=== PATIENT | female | born 1980 | race Caucasian/White ===

== ENCOUNTER 2018-09-10 22:09 | Outpatient (REF) | payer OTHER, SELFPAY ==
[2018-09-10 23:05] LABS: TSH (W/Ref FT4) 1.63 uIU/mL (0.358-3.74); Vitamin B12 765 pg/mL (193-986)
[2018-09-11 04:59] LABS: Vitamin D 25 Total 61.3 ng/ml (30-100)
== END 2018-09-10 22:29 ==
LOC: NCHCN 22:09
PROVIDERS: PCP Family Medicine; Visit Provider Nurse Practitioner Family
DX: E03.9 Hypothyroidism, unspecified (principal); F32.9 Major depressive disorder, single episode, unspecified; E55.9 Vitamin D deficiency, unspecified; E53.8 Deficiency of other specified B group vitamins
CPT/HCPCS: 82306; 82607; 84443

== ENCOUNTER 2019-11-26 13:41 | Outpatient (REF) | payer OTHER, SELFPAY ==
[2019-11-26 22:02] LABS: ALT 26 U/L (14-59); AST 18 U/L (15-37); Albumin 4.3 g/dL (3.4-5.0); Alkaline Phosphatase 61 U/L (46-116); Anion Gap 5.4 mmol/L (3-11); BUN 12 mg/dL (7-18); Bilirubin, Total 0.2 mg/dL (0.2-1.0); CO2 29.6 mmol/L (21.0-32.0); CREATININE 0.75 mg/dL (0.55-1.02); Calcium 9.1 mg/dL (8.5-10.1); Chloride 104 mmol/L (98-107); Glucose 77 mg/dL (74-106); Potassium 4.2 mmol/L (3.5-5.1); Sodium 139 mmol/L (136-145); TSH 1.45 uIU/mL (0.36-3.74); Total Protein 7.3 g/dL (6.4-8.2)
[2019-12-02 15:05] LABS: IgA 289 mg/dL (85-499); Interpretation (See Note); Tissue Transglutaminase IgA <1.2 U/mL (<4.0)
== END 2019-11-26 14:01 ==
LOC: NCHCN 13:41
PROVIDERS: PCP Family Medicine; Visit Provider Family Medicine
DX: E03.9 Hypothyroidism, unspecified (principal); E66.3 Overweight
CPT/HCPCS: 80053; 82784; 83516; 84443

== ENCOUNTER 2021-01-03 17:52 | Outpatient (REF) | payer OTHER, SELFPAY ==
[2021-01-03 22:17] LABS: HCT 37.4 % (36.0-46.0); HGB 12.3 g/dL (11.2-15.7); MCH 29.6 pg (27.0-33.0); MCHC 32.9 % (32.0-36.0); MCV 89.9 fL (80-95); MPV 11.5 fL (8.0-11.0); Platelet Count 235 10^3/uL (130-400); RBC 4.16 10^6/uL (3.93-5.22); RDW 13.1 % (11.7-14.6); RDW-SD 43.2 fL; WBC 8.15 10^3/uL (4.4-10.8)
[2021-01-03 23:05] LABS: Vitamin B12 469 pg/mL (193-986)
[2021-01-05 00:39] LABS: Vitamin D 25 Total 49.4 ng/mL (30-100)
== END 2021-01-03 17:53 | disposition home or self-care (01) ==
LOC: NCHCN 17:52
PROVIDERS: PCP Family Medicine; Visit Provider Family Medicine
DX: E55.9 Vitamin D deficiency, unspecified (principal); E53.8 Deficiency of other specified B group vitamins; D64.9 Anemia, unspecified
CPT/HCPCS: 82306; 85027; 82607

== ENCOUNTER 2021-09-12 09:10 | Outpatient (REF) | payer OTHER, SELFPAY ==
[2021-09-12 15:18] LABS: HCT 36.3 % (36.0-46.0); HGB 11.8 g/dL (11.2-15.7); MCH 30.6 pg (27.0-33.0); MCHC 32.5 % (32.0-36.0); MCV 94 fL (80-95); MPV 11.1 fL (8.0-11.0); Platelet Count 222 10^3/uL (130-400); RBC 3.85 10^6/uL (3.93-5.22); RDW 12.2 % (11.7-14.6); RDW-SD 41.9 fL; WBC 7.31 10^3/uL (4.4-10.8)
[2021-09-12 15:58] LABS: ALT 28 U/L (14-59); AST 25 U/L (15-37); Albumin 3.9 g/dL (3.4-5.0); Alkaline Phosphatase 59 U/L (46-116); BUN 15 mg/dL (7-18); Bilirubin, Total 0.4 mg/dL (0.2-1.0); CREATININE 0.7 mg/dL (0.55-1.02); Calcium 8.6 mg/dL (8.5-10.1); Calculated LDL 42 mg/dL (<100); Chloride 102 mmol/L (98-107); Cholesterol 113 mg/dL (<200); Glucose 87 mg/dL (74-106); HDL Cholesterol 66 mg/dL (40-60); Potassium 3.8 mmol/L (3.5-5.1); Sodium 137 mmol/L (136-145); TSH 0.42 uIU/mL (0.36-3.74); Triglyceride 29 mg/dL (<150); Vitamin B12 288 pg/mL (193-986)
[2021-09-14 05:10] LABS: Vitamin D 25 Total 53.8 ng/mL (30-100)
== END 2021-09-12 09:11 | disposition home or self-care (01) ==
LOC: NCHCN 09:10
PROVIDERS: PCP Family Medicine; Visit Provider Family Medicine
DX: Z00.00 Encounter for general adult medical examination without abnormal findings (principal); E03.9 Hypothyroidism, unspecified; E55.9 Vitamin D deficiency, unspecified; E53.8 Deficiency of other specified B group vitamins; F31.81 Bipolar II disorder
CPT/HCPCS: 80053; 80061; 82306; 85027; 82607; 84443

== ENCOUNTER 2021-09-22 13:11 | Outpatient (REF) | payer OTHER, SELFPAY ==
[2021-09-24 11:36] LABS: COVID-19 RT-PCR UVMMC Result Negative (Negative)
== END 2021-09-22 13:12 | disposition home or self-care (01) ==
LOC: NCHCN 13:11
PROVIDERS: PCP Family Medicine; Visit Provider Family Medicine
DX: Z20.822 Contact with and (suspected) exposure to COVID-19 (principal)
CPT/HCPCS: U0003

== ENCOUNTER 2022-09-13 12:55 | Outpatient (REF) | payer OTHER, SELFPAY ==
[2022-09-13 16:48] LABS: HCT 38.7 % (36.0-46.0); HGB 12.6 g/dL (11.2-15.7); MCH 30.4 pg (27.0-33.0); MCHC 32.6 % (32.0-36.0); MCV 93 fL (80-95); MPV 10.9 fL (8.0-11.0); Platelet Count 236 10^3/uL (130-400); RBC 4.15 10^6/uL (3.93-5.22); RDW 12.3 % (11.7-14.6); RDW-SD 42.7 fL; WBC 6.79 10^3/uL (4.4-10.8)
[2022-09-13 17:53] LABS: Iron 44 ug/dL (50-170)
[2022-09-13 18:06] LABS: Ferritin 34 ng/mL (8-252)
== END 2022-09-13 12:56 | disposition home or self-care (01) ==
LOC: NCHCN 12:55
PROVIDERS: PCP Family Medicine; Visit Provider Family Medicine
DX: D64.9 Anemia, unspecified (principal)
CPT/HCPCS: 85027; 82728; 83540

== ENCOUNTER 2023-09-17 12:02 | Outpatient (REF) | payer OTHER, SELFPAY ==
[2023-09-17 14:50] LABS: HCT 37.3 % (36.0-46.0); HGB 12.4 g/dL (11.2-15.7); MCH 30.4 pg (27.0-33.0); MCHC 33.2 % (32.0-36.0); MCV 91 fL (80-95); MPV 11.1 fL (8.0-11.0); Platelet Count 248 10^3/uL (130-400); RBC 4.08 10^6/uL (3.93-5.22); RDW 12.7 % (11.7-14.6); RDW-SD 41.8 fL; WBC 6.59 10^3/uL (4.4-10.8)
[2023-09-17 15:12] LABS: Hemoglobin A1C 5.2 % (<5.7)
[2023-09-17 15:41] LABS: ALT 27 U/L (14-59); AST 26 U/L (15-37); Albumin 3.9 g/dL (3.4-5.0); Alkaline Phosphatase 70 U/L (46-116); Anion Gap 5.8 mmol/L (3-11); BUN 8 mg/dL (7-18); Bilirubin, Total 0.32 mg/dL (0.2-1.0); CO2 30.2 mmol/L (21.0-32.0); CREATININE 0.6 mg/dL (0.55-1.02); Calcium 9.1 mg/dL (8.5-10.1); Calculated LDL 53 mg/dL (<100); Chloride 105 mmol/L (98-107); Cholesterol 119 mg/dL (<200); Estimated GFR 113.44 (mL/min/1.73m2); Glucose 65 mg/dL (74-106); HDL Cholesterol 61 mg/dL (40-60); Sodium 141 mmol/L (136-145); TSH 0.78 uIU/Ml (0.36-3.74); Total Protein 7.2 g/dL (6.4-8.2); Triglyceride 28 mg/dL (<150); Vitamin B12 472 pg/mL (193-986); Vitamin D 25 Total 51.9 ng/mL (30-100)
== END 2023-09-17 12:03 | disposition home or self-care (01) ==
LOC: NCHCN 12:02
PROVIDERS: PCP Family Medicine; Visit Provider Family Medicine
DX: Z13.6 Encounter for screening for cardiovascular disorders (principal); Z00.00 Encounter for general adult medical examination without abnormal findings; Z13.1 Encounter for screening for diabetes mellitus; D64.9 Anemia, unspecified; E55.9 Vitamin D deficiency, unspecified; E53.9 Vitamin B deficiency, unspecified; E03.9 Hypothyroidism, unspecified
CPT/HCPCS: 80053; 80061; 82306; 85027; 82607; 83036; 84443

== ENCOUNTER 2024-09-18 13:26 | Outpatient (REF) | payer OTHER, SELFPAY ==
[2024-09-18 15:47] LABS: ALT 29 U/L (14-59); AST 22 U/L (15-37); Albumin 4.2 g/dL (3.4-5.0); Alkaline Phosphatase 81 U/L (46-116); Anion Gap 4.2 mmol/L (3-11); BUN 13 mg/dL (7-18); Bilirubin, Total 0.5 mg/dL (0.2-1.0); CO2 31.8 mmol/L (21.0-32.0); Calcium 9.5 mg/dL (8.5-10.1); Chloride 103 mmol/L (98-107); Cholesterol 124 mg/dL (<200); Estimated GFR 112.73 (mL/min/1.73m2); Glucose 92 mg/dL (74-106); HDL Cholesterol 65 mg/dL (>or=50); Potassium 4.5 mmol/L (3.5-5.1); Sodium 139 mmol/L (136-145); TSH (W/Ref FT4) 0.34 uIU/mL (0.36-3.74); Total Protein 7.8 g/dL (6.4-8.2)
[2024-09-18 15:53] LABS: Hemoglobin A1C 5.2 % (<5.7)
[2024-09-18 16:03] LABS: Triglyceride <25 mg/dL (<150)
[2024-09-18 17:20] LABS: LDL CHOLESTEROL 52 mg/dL (<100)
== END 2024-09-18 13:27 | disposition home or self-care (01) ==
LOC: NCHCN 13:26
PROVIDERS: PCP Family Medicine; Visit Provider Family Medicine
DX: Z00.00 Encounter for general adult medical examination without abnormal findings (principal)
CPT/HCPCS: 80053; 80061; 83721; 83036; 84439; 84443